=== PATIENT | male | born 1950 | race Caucasian/White ===

== ENCOUNTER → 2018-08-28 14:52 | Outpatient (CLI) | payer MEDICARE, OTHER ==
[~2018-08-28 14:52] MED LIST: AMBIEN CR 6.26.25 MG PO; AMBIEN5 MG PO; COLACE100 MG PO; COUMADIN5 MG PO; COUMADIN7.5 MG PO; HYSINGLA ER20 MG PO; LIPITOR20 MG PO; LOW DOSE ASPIRI81 M1 PO; OXYCONTIN10 MG PO; PRINIVIL20 MG PO; PROTONIX VL + NS SYR IV; TENORMIN25 MG PO; XANAX0.5 MG PO; ZOFRAN INJ IV
[2018-08-30 18:13] VITALS: BMI 36.2
== END | disposition home or self-care (01) ==
LOC: D.CT 14:52
DX: I70.8 Atherosclerosis of other arteries (principal)

== ENCOUNTER 2018-08-29 17:04 | Inpatient (IN) | payer MEDICARE, OTHER ==
[~2018-08-29] VITALS: Ht 175.3 cm; Wt 111.1 kg
--- NOTE | ~2018-08-29 | HEMODYNAMI ---
PATIENT:CODY POE MEDICAL RECORD: [id number] : 46 LOCATION:[facility] D.2303 ADMISSION DATE: 08/29/18 Generatedon:09/04/201815:24 Patient name: CODY POE Patient #: [id number] SSN: D OB: 1950 Date of study: 09/04/2018 Page: Of Hemodynamic Procedure Report Patient Data Patient Demographics Procedure consent was obtained First Name: CODY Gender: Male Last Name: DEEPIKA : 1950 [facility] Initial: RAUDEL Age: 68 year(s) Patient #: [id number] Race: Unknown Additional ID: [id number] Contact details Address: [address] [place] [address] State: [place] City: [facility] Zip code: [address] Past Medical History Allergies: No known allergies Admission Admission Data Admission Date: 08/29/2018 Admission Time: 17:04 Room #: D.2303 Height (in.): 69 BSA: 2.25 (m2) Height (cm.): 175.26 BMI: 36.03 (kg/m2) Weight (lbs.): 244 Weight (kg.): 110.68 Procedure Procedure Types Cath Procedure Peripheral Cath Diagnostic Procedure Abd/Extremity Follow Up Arteriogram Procedure Description Procedure Date Procedure Date: 09/04/2018 Procedure Start Time: 13:36 Procedure Staff Name Function Emelia Hendricks MD Performing Physician Heike Arnold RT Monitor Xavier Winters RT Scrub Ashtyn Morgan RN Nurse Procedure Data Cath Procedure Fluoroscopy Diagnostic fluoroscopy Total fluoroscopy Time: 7.8 time: 7.8 min min Diagnostic fluoroscopy Total fluoroscopy dose: 463 dose: 463 mGy mGy Contrast Material Contrast Material Type Amount (ml) Isovue 300 115 Entry Location Entry Primary Successful Side Size Upsize Upsize Entry Closure Succes sful Closure Location (Fr) 1 (Fr) 2 (Fr) Remarks Device Remarks Femoral Exoseal artery Procedure Medications Medication Administration Route Dosage Heparin Flush Bag added to field 2 bags (1000units/500ml NS) Lidocaine 1% added to field 20 Oxygen etCO2 Nasal cannula 3 l/min Versed I.V. 2 mg Heparin Bolus I.V. 1000 units Heparin Drip I.V. drip 800 units/hr (15777nbqzy/250 D5W) Versed I.V. 1 mg Versed I.V. 1 mg Benadryl I.V. 25 mg Hemodynamics Rest BSA: 2.25 (m2) O2 Consumption: Estimated: 263.6 (ml/min) O2 Consumption indexed: Estimated:117.16 (ml/min/m) Heart Rate: 74 (bpm) Snapshots Pre Cath Intra NCS Post Cath Vital Signs Time Heart Resp SPO2 etCO2 NIBP Rhythm Pain Sedation Rate (ipm) (%) (mmHg) (mmHg) Status Level (bpm) 13:27:57 74 19 98 41.1 101/60(81) NSR 0 (11) 10(A) , No pain 13:32:07 71 30 98 41.1 97/62(78) NSR 0 (11) 10(A) , No pain 13:36:14 79 13 40.4 100/60(74) NSR 0 (11) 9(A) , No pain 13:40:22 76 13 98 27.6 104/62(80) NSR 0 (11) 9(A) , No pain 13:44:32 77 11 98 42.6 103/61(84) NSR 0 (11) 9(A) , No pain 13:48:40 78 12 40.4 107/68(88) NSR 0 (11) 9(A) , No pain 13:52:52 77 32 41.9 99/62(76) NSR 0 (11) 9(A) , No pain 13:56:58 79 26 97 40.4 94/61(74) NSR 0 (11) 9(A) , No pain 14:01:04 78 13 97 41.9 89/61(76) NSR 0 (11) 9(A) , No pain 14:05:09 77 13 97 44.1 91/56(76) NSR 0 (11) 9(A) , No pain 14:09:15 77 11 96 49.3 93/57(74) NSR 0 (11) 9(A) , No pain 14:13:29 78 50 96 41.1 96/57(70) NSR 0 (11) 9(A) , No pain 14:17:35 80 12 95 40.3 104/64(79) NSR 0 (11) 9(A) , No pain 14:21:45 85 13 95 42.6 99/62(86) NSR 0 (11) 9(A) , No pain 14:25:50 83 13 95 41.1 104/65(86) NSR 0 (11) 9(A) , No pain 14:30:00 82 16 95 41.8 101/62(82) NSR 0 (11) 9(A) , No pain 14:34:10 80 41 96 41.1 102/63(86) NSR 0 (11) 9(A) , No pain 14:38:20 85 14 95 38.8 101/62(76) NSR 0 (11) 9(A) , No pain 14:42:28 81 13 96 41.1 101/59(83) NSR 0 (11) 9(A) , No pain 14:46:38 82 23 96 42.6 90/60(75) NSR 0 (11) 9(A) , No pain 14:50:42 88 21 95 40.3 106/62(83) NSR 0 (11) 9(A) , No pain 14:54:52 84 12 95 32.1 96/65(80) NSR 0 (11) 9(A) , No pain 14:58:57 84 18 91 39.6 95/61(79) NSR 0 (11) 9(A) , No pain 15:03:03 87 11 90 38.1 94/63(79) NSR 0 (11) 9(A) , No pain 15:07:09 89 14 92 34.3 96/63(74) NSR 0 (11) 9(A) , No pain 15:11:15 83 17 92 38.8 90/61(75) NSR 0 (11) 9(A) , No pain 15:15:19 81 17 93 35.1 88/64(72) NSR 0 (11) 9(A) , No pain 15:19:22 85 13 92 40.4 97/59(75) NSR 0 (11) 9(A) , No pain 15:23:32 75 42 92 38.1 101/55(83) NSR 0 (11) 9(A) , No pain Medications Time Medication Route Dose Verified Delivered Reason Notes Effectiveness by by 13:25:07 Heparin Flush added 2 bags M J Long M J Long used for Bag to MD WHITFIELD procedure (1000units/500ml field NS) 13:25:23 Lidocaine 1% added 20ml M J Long M J Long for local to vial MD WHITFIELD anesthetic field 13:32:41 Oxygen etCO2 3 l/min M J Long Ashtyn used for Nasal MD Eddie CARLOS procedure cannula 13:50:37 Versed I.V. 2 mg M J Long Ashtyn for MD Eddie CARLOS sedation 14:31:49 Heparin Bolus I.V. 1000 M J Long Ashtyn Per units MD Eddie CARLOS physician 14:32:08 Heparin Drip I.V. 800 M J Long Ashtyn Per (09839bnfas/250 drip units/hr MD Eddie CARLOS physician D5W) 14:33:57 Versed I.V. 1 mg M J Long Ashtyn for MD Eddie CARLOS sedation 14:45:39 Versed I.V. 1 mg M J Long Ashtyn for MD Eddie CARLOS sedation 14:59:56 Benadryl I.V. 25 mg M J Long Ashtyn Per MD Eddie CARLOS physician Procedure Log Time Note 12:42:05 Patient Height : 69 inches 12:42:05 Patient Weight : 244 lbs 13:08:51 Time tracking: Regular hours (M-F 7:00 - 5:00) 13:09:34 Plan of Care:Hemodynamics will remain stable., Cardiac rhythm will remain stable., Comfort level will be maintained., Respiratory function will remain adequate., Patient/ family verbilizes understanding of procedure., Procedure tolerated without complication., Recovers from procedure without complications.. 13:09:43 Patient received from ICU to IR Alert and oriented. Tansferred to table in Supine position. 13:09:44 Correct patient and procedure confirmed by team. 13:09:47 Signed procedure consent form obtained from patient. 13:09:52 H&P Date Dictated: 09/04/2018 Within 30 days and on chart.. 13:09:54 Pre-procedure instructions explained to patient. 13:09:55 Pre-op teaching completed and patient verbalized understanding. 13:09:57 Family in waiting room. 13:10:01 Patient NPO since Midnight. 13:10:11 Is the patient allergic to Iodine/contrast media? No. 13:10:14 Is patient on blood thinner?Yes 13:10:17 Patient diabetic? No. 13:10:19 - 13:10:20 ----Pre-sedation anethsthesia assessment.---- 13:10:25 Previous problem with sedation/anesthesia? No ? 13:10:28 Snore? Yes 13:10:31 Sleep apnea? Yes 13:10:33 Deviated septum? No 13:10:34 Opens mouth fully? Yes 13:10:36 Sticks out tongue? Yes 13:10:39 Airway obstruction? No ? 13:10:43 Dentures? No ? 13:10:50 Pre procedure: right dorsailis pedis pulse Doppler 13:10:55 Pre procedure: left dorsailis pedis pulse Doppler 13:11:00 Pre procedure: right posterior tibial pulse Doppler 13:11:05 Pre procedure: left posterior tibial pulse Doppler 13:11:35 IV patent on arrival in right forearm with D5/.45%NaCl at O. 13:11:47 Right groin area was prepped with betadine and draped in sterile fashio n 13:11:51 - 13:11:58 Use device set IR Diagnostic 13:12:01 Sterile Angiographic Pack opened to sterile field. 13:12:02 Bag Decanter () opened to sterile field. 13:12:05 Tegaderm 4 x 4 (1626W) opened to sterile field. 13:12:26 - 13:25:07 Heparin Flush Bag (1000units/500ml NS) 2 bags added to field was administered by Emelia Hendricks MD; used for procedure; 13:25:23 Lidocaine 1% 20ml vial added to field was administered by Emelia Hendricks MD; for local anesthetic; 13:26:42 - 13::47 ECG and BP/O2 sat monitors applied to patient. 13::48 Vital chart was started 13::50 Baseline sample Acquired. 13::55 Full Disclosure recording started 13::57 - 13:32:41 Oxygen 3 l/min etCO2 Nasal cannula was administered by Ashtyn Morgan RN ; used for procedure; 13:35:44 Physician arrived 13:35:45 --------ALL STOP TIME OUT------ 13:35:47 Final Timeout: patient, procedure, and site verified with staff and physician. All members of the team are in agreement. 13:36:17 Procedure started. 13:36:22 Local anesthetic to right femoral artery with Lidocaine 1% by Emelia Hendricks MD.INITIAL ACCESS ONLY 13:50:37 Versed 2 mg I.V. was administered by Ashtyn Morgan RN; for sedation; 14:27:17 SHEATH 5FR Slender (51-0473) opened to sterile field. 14:31:32 GLIDE WIRE ANGLE 180cm (KK1193) opened to sterile field. 14:31:33 CXI Catheter 90cm (B02111) opened to sterile field. 14:31:49 Heparin Bolus 1000 units I.V. was administered by Ashtyn Morgan RN; Per physician; 14:31:52 TORQUE DEVICE PLASTIC .038 ( TD01) opened to sterile field. 14:32:08 Heparin Drip (74670mfser/250 D5W) 800 units/hr I.V. drip was administered by Ashtyn Morgan RN; Per physician; 14:33:57 Versed 1 mg I.V. was administered by Ashtyn Morgan RN; for sedation; 14:45:39 Versed 1 mg I.V. was administered by Ashtyn Morgan RN; for sedation; 14:59:56 Benadryl 25 mg I.V. was administered by Ashtyn Morgan RN; Per physician ; 15:01:18 SHEATH 6FR [place] (IYO429) opened to sterile field. 15:01:30 DOC .035 wire (Y19132) opened to sterile field. 15:03:32 EXOSEAL 6Fr (EX600) opened to sterile field. 15:04:34 A sheath was inserted into the Femoral artery 15:04:34 Sheath removed intact; hemostasis achieved with Exoseal to the Femoral artery. 15:09:25 Procedure ended.(Physican Out) 15:09:39 Fluoroscopy time 07.80 minutes. 15:09:45 Fluoroscopy dose: 463 mGy 15:09:45 Flurop Dose total: 463 15:09:52 Contrast amount:Isovue 300 115ml. 15:09:54 Procedure and supply charges have been captured, reviewed, submitted an d are correct. 15:11:50 Report given to ICU. 15:24:32 Vital chart was stopped Device Usage Item Name Manufacture Quantity Catalog Hospital Part Current Minimal Lot# / Number Charge Number Stock Stock Serial# Code Sterile Cardinal 1 [id number] 5 Angiographic Health Pack Bag Decanter Microtek 1 [id number] 10230 197426 5 () [employer] Tegaderm 4 x 3M 1 1626W [id number] 399239 852699 5 4 (1626W) SHEATH 6FR Terumo 1 [id number] 887463 519504 631303 5 Slender (801060) GLIDE WIRE Terumo 1 [id number] 909603 931994 396384 5 ANGLE 180cm (LF4573) CXI Catheter [employer] 1 V97262 960214 745560 194736 5 [id number] 90cm (X44336) TORQUE [place] 1 TD01 259075 114940 088758 5 DEVICE Scientific PLASTIC .038 ( TD01) SHEATH 6FR Terumo 1 SID004 486641 273398 484163 40 [place] (PSE544) DOC .035 [employer] 1 B85123 972987 781176 5 wire (N32091) EXOSEAL 6Fr Cardinal 1 EX600 763211 130580 731165 10 [id number] (EX600) Health Signature Audit [place] Stage Time Signature Unsigned Intra-Procedure 09/04/2018 Heike Arnold 3:24:28 PM RT(R) Signatures Monitor : Heike Arnold RT Signature : Date : Time : [facility] [address] [facility] [place] [address]
--- NOTE | ~2018-08-29 | HEMODYNAMI ---
PATIENT:CODY POE MEDICAL RECORD: [id number] : 46 LOCATION:D.MS [facility]4 ADMISSION DATE: 08/29/18 Generatedon:09/03/201814:18 Patient name: CODY POE Patient #: [id number] SSN: D OB: 1950 Date of study: 09/03/2018 Page: Of Hemodynamic Procedure Report Patient Data Patient Demographics Procedure consent was obtained First Name: CODY Gender: Male Last Name: DEEPIKA : 1950 [facility] Initial: RAUDEL Age: 68 year(s) Patient #: [id number] Race: Unknown Additional ID: [id number] Contact details Address: [address] [place] [address] State: [place] City: [facility] Zip code: [address] Past Medical History Allergies: No known allergies Admission Admission Data Admission Date: 08/29/2018 Admission Time: 17:04 Room #: D.2204 Height (in.): 69 BSA: 2.25 (m2) Height (cm.): 175.26 BMI: 36.03 (kg/m2) Weight (lbs.): 244 Weight (kg.): 110.68 Procedure Procedure Types Cath Procedure Peripheral Cath Diagnostic Procedure Language Translator Peripheral Procedures Abd/Extremity Extremities Bilat Lower Extremity Procedure Description Procedure Date Procedure Date: 09/03/2018 Procedure Start Time: 12:43 Procedure Staff Name Function Jewel Mcdermott MD Performing Physician Heike Arnold RT Torch Straightener And Heater Ashtyn Morgan RN Nurse Xavier Winters RT Scrub Procedure Data Cath Procedure Fluoroscopy Diagnostic fluoroscopy Total fluoroscopy Time: time: 27.6 min 27.6 min Diagnostic fluoroscopy Total fluoroscopy dose: 797 dose: 797 mGy mGy Contrast Material Contrast Material Type Amount (ml) Isovue 300 115 Diagnostic catheters Device Type Used For End Catheter Placement DIAGNOSTIC IMT 5Fr Catheter ([id number]) Procedure Medications Medication Administration Route Dosage Heparin Flush Bag added to field 3 bags (1000units/500ml NS) Lidocaine 1% added to field 20 Oxygen etCO2 Nasal cannula 3 l/min Versed I.V. 1 mg Fentanyl I.V. 50 mcg Heparin Bolus I.V. 3000 units Versed I.V. 1 mg Fentanyl I.V. 50 mcg Fentanyl I.V. 50 mcg Versed I.V. 1 mg Benadryl I.V. 25 mg Versed I.V. 1 mg Fentanyl I.V. 50 mcg Heparin Bolus I.V. 4000 units unlisted medication 1 mg/hr Heparin Drip 500 units/hr (63346rcamm/250 D5W) Hemodynamics Rest BSA: 2.25 (m2) O2 Consumption: Estimated: 259.93 (ml/min) O2 Consumption indexed : Estimated:115.52 (ml/min/m) Heart Rate: 69 (bpm) Snapshots Pre Cath Intra NCS Post Cath Vital Signs Time Heart Resp SPO2 etCO2 NIBP (mmHg) Rhythm Pain Status Sedation Rate (ipm) (%) (mmHg) Level (bpm) 12:28:02 66 9 97 35.8 132/84(110) NSR 0 (11) , No 10(A) pain 12:32:22 65 13 98 33.6 129/81(97) NSR 0 (11) , No 10(A) pain 12:36:38 66 11 97 36.5 133/82(109) NSR 2 (11) , 10(A) Uncomfortable 12:40:56 67 96 34.3 126/77(97) NSR 0 (11) , No 9(A) pain 12:45:12 68 12 97 37.3 131/87(112) NSR 0 (11) , No 9(A) pain 12:49:30 68 14 98 31.3 125/80(106) NSR 0 (11) , No 9(A) pain 12:53:48 65 11 99 35 120/78(96) NSR 0 (11) , No 9(A) pain 12:58:04 66 9 99 41.1 128/80(100) NSR 0 (11) , No 9(A) pain 13:02:22 62 10 97 39.6 119/78(90) NSR 0 (11) , No 9(A) pain 13:06:37 61 10 98 40.3 121/73(89) NSR 0 (11) , No 8(A) pain 13:10:50 59 10 98 38 118/74(93) NSR 0 (11) , No 8(A) pain 13:15:07 66 20 98 37.3 117/75(88) NSR 0 (11) , No 8(A) pain 13:19:22 63 13 98 29.1 110/76(89) NSR 0 (11) , No 8(A) pain 13:23:34 62 19 98 39.5 116/72(88) NSR 0 (11) , No 8(A) pain 13:27:53 61 31 98 37.3 119/69(86) NSR 0 (11) , No 8(A) pain 13:32:09 60 14 97 37.3 115/76(87) NSR 0 (11) , No 8(A) pain 13:36:23 60 9 97 36.5 118/74(89) NSR 0 (11) , No 8(A) pain 13:40:36 61 12 98 38 123/78(91) NSR 0 (11) , No 8(A) pain 13:44:51 63 11 98 36.5 110/74(82) NSR 0 (11) , No 8(A) pain 13:49:05 64 48 98 37.2 111/69(79) NSR 0 (11) , No 8(A) pain 13:53:18 60 13 98 39.5 113/74(92) NSR 0 (11) , No 8(A) pain 13:57:32 58 17 98 38 120/71(103) NSR 0 (11) , No 8(A) pain 14:01:49 64 12 97 17.9 119/77(89) NSR 0 (11) , No 8(A) pain 14:06:05 59 9 95 35.8 117/77(89) NSR 0 (11) , No 8(A) pain 14:10:18 56 20 98 38.7 122/79(90) NSR 0 (11) , No 8(A) pain 14:14:33 60 15 98 33.6 116/78(89) NSR 0 (11) , No 8(A) pain Medications Time Medication Route Dose Verified Delivered Reason Notes Effectiveness by by 12:36:43 Heparin Flush added 3 bags Jewel Holloway used for Bag to Sharron Mcdermott procedure (1000units/500ml field MD [place] NS) 12:36:55 Lidocaine 1% added 20ml Jewel Holloway for local to vial Sharron Mcdermott anesthetic field MD [place] 12:37:14 Oxygen etCO2 3 l/min Jewel Chamorro used for Nasal Sharron Brooksr systems design engineer cannula MD 12:45:15 Versed I.V. 1 mg Jewel Ashtyn for Sharron Eddie RN sedation 12:45:27 Fentanyl I.V. 50 mcg Jewel Sidhuody for Sharron Eddie RN sedation 12:47:44 Heparin Bolus I.V. 3000 Jewel Ashtyn Per units Sharron Brooksr RN physician 12:47:54 Versed I.V. 1 mg Jewel Ashtyn for Sharron Eddie RN sedation 12:48:00 Fentanyl I.V. 50 mcg Jewel Ashtyn for Sharron Eddie RN sedation 12:56:52 Fentanyl I.V. 50 mcg Jewel Sidhuody for Sharron Eddie RN sedation 12:56:59 Versed I.V. 1 mg Jewel Sidhuody for Sharron Eddie RN sedation 13:03:44 Benadryl I.V. 25 mg Jewel Sidhuody for Sharron Eddie RN sedation 13:28:55 Versed I.V. 1 mg Jewel Ashtyn for Sharron Eddie RN sedation 13:29:03 Fentanyl I.V. 50 mcg Jewel Ashtyn for Sharron Eddie RN sedation 13:38:03 Heparin Bolus I.V. 4000 Jewel Ashtyn Per units Sharron Brooksr RN physician 14:09:55 ALTEPLASE IA 1 mg/hr Jewel Sidhuody Per Sharron Brooksr RN physician 14:10:15 Heparin Drip IA 500 Jewel Ashtyn Per (08613yobes/250 units/hr Sharron Brooksr RN physician D5W) Procedure Log Time Note 11:29:16 Patient Height : 69 inches 11:29:32 Patient Weight : 244 lbs 11:36:23 Use device set IR Diagnostic 12:11:59 Time tracking: Regular hours (M-F 7:00 - 5:00) 12:13:21 SHEATH 6FR Destination (RSR01) opened to sterile field. 12:13:23 TUBING Contrast Injection High Pressure (NTF894Z) opened to sterile field. 12:13:23 BENTSON 145cm wire (P74982) opened to sterile field. 12:13:25 Micropuncture VSI 4FR kit opened to sterile field. 12:13:26 SHEATH 5FR [place] (KLY150) opened to sterile field. 12:13:27 LOBATO 260 wire (K38616) opened to sterile field. 12:13:29 Tegaderm 4 x 4 (1626W) opened to sterile field. 12:13:30 Sterile Angiographic Pack opened to sterile field. 12:13:31 Bag Decanter (2002S) opened to sterile field. 12:13:32 ACIST Manifold (18925) opened to sterile field. 12:13:33 ACIST Hand Control (79415) opened to sterile field. 12:13:33 ACIST Syringe (44605) opened to sterile field. 12:13:39 - 12:13:46 Plan of Care:Hemodynamics will remain stable., Cardiac rhythm will remain stable., Comfort level will be maintained., Respiratory function will remain adequate., Patient/ family verbilizes understanding of procedure., Procedure tolerated without complication., Recovers from procedure without complications.. 12:13:55 Patient received from Med/Surg to IR Alert and oriented. Tansferred to table in Supine position. 12:13:57 Correct patient and procedure confirmed by team. 12:14:00 Signed procedure consent form obtained from patient. 12:14:08 H&P Date Dictated: 09/03/2018 Within 30 days and on chart.. 12:14:12 Pre-procedure instructions explained to patient. 12:14:13 Pre-op teaching completed and patient verbalized understanding. 12:14:17 Family in waiting room. 12:14:20 Patient NPO since Midnight. 12:14:31 Patient allergic to No known allergies 12:14:38 Is the patient allergic to Iodine/contrast media? No. 12:16:42 Is patient on blood thinner?Yes 12:16:48 ACC The patient was administered the following blood thiners within the last 24 hours: ACCHeparin 12:16:53 Patient diabetic? No. 12:16:56 - 12:16:57 ----Pre-sedation anethsthesia assessment.---- 12:17:00 Previous problem with sedation/anesthesia? No ? 12:17:03 Snore? Yes 12:17:05 Sleep apnea? Yes 12:17:08 Deviated septum? No 12:17:12 Opens mouth fully? Yes 12:17:14 Sticks out tongue? Yes 12:17:18 Airway obstruction? No ? 12:17:22 Dentures? No ? 12:17:25 - 12::46 Pre procedure: left posterior tibial pulse 0-Absent 12:17:51 Pre procedure: right posterior tibial pulse Doppler 12:17:55 Pre procedure: left dorsailis pedis pulse Doppler 12:18:01 Pre procedure: right dorsailis pedis pulse Doppler 12:18:14 IV patent on arrival in right forearm with D5/.45%NaCl at O. 12:18:20 Right groin area was prepped with chlora-prep and draped in sterile fashion 12:18:22 - 12::46 ECG and BP/O2 sat monitors applied to patient. ::46 Vital chart was started 12::47 Baseline sample Acquired. 12:28:58 A DIAGNOSTIC IMT 5Fr Catheter ([id number]) was advanced over the wire an d used for . 12::02 Full Disclosure recording started 12:29:05 - 12:36:43 Heparin Flush Bag (1000units/500ml NS) 3 bags added to field was administered by Jewel Mcdermott MD; used for procedure; 12:36:55 Lidocaine 1% 20ml vial added to field was administered by Jewel peters MD; for local anesthetic; 12:37:14 Oxygen 3 l/min etCO2 Nasal cannula was administered by Ashtyn Morgan RN ; used for procedure; 12:39:02 Physician arrived 12:39:03 --------ALL STOP TIME OUT------ 12:39:04 Final Timeout: patient, procedure, and site verified with staff and physician. All members of the team are in agreement. 12:43:02 Procedure started. 12:43:06 Local anesthetic to right femoral artery with Lidocaine 1% by Jewel Mcdermott MD.INITIAL ACCESS ONLY 12:43:08 Arterial access obtained using ultrasound guidance. 12:43:27 BANNER .035 260 glide wire (K33822) opened to sterile field. 12:45:15 Versed 1 mg I.V. was administered by Ashtyn Morgan RN; for sedation; 12:45:27 Fentanyl 50 mcg I.V. was administered by Ashtyn Morgan RN; for sedation ; 12:47:44 Heparin Bolus 3000 units I.V. was administered by Ashtyn Morgan RN; Per physician; 12:47:54 Versed 1 mg I.V. was administered by Ashtyn Morgan RN; for sedation; 12:48:00 Fentanyl 50 mcg I.V. was administered by Ashtyn Morgan RN; for sedation ; 12:56:52 Fentanyl 50 mcg I.V. was administered by Ashtyn Morgan RN; for sedation ; 12:56:59 Versed 1 mg I.V. was administered by Ashtyn Morgan RN; for sedation; 12:58:43 CXI SUPPORT .035 135 CM STR catheter (B26394) opened to sterile field. 13:03:44 Benadryl 25 mg I.V. was administered by Ashtyn Morgan RN; for sedation; 13:07:23 Viance Crossing Catheter Flex (YDDAU680) opened to sterile field. 13:07:23 DIAMONDBACK VIPER .014 335 CM wire (DOKZNXT50) opened to sterile field. 13:20:22 TREASURE 12 300cm wire ([id number]) opened to sterile field. 13:28:55 Versed 1 mg I.V. was administered by Ashtyn Morgan RN; for sedation; 13:29:03 Fentanyl 50 mcg I.V. was administered by Ashtyn Morgan RN; for sedation ; 13:37:43 CHOICE PT Extra Support 182cm wire (2586975C0) opened to sterile field. 13:37:50 CXI SUPPORT .018 150CM STR catheter (F72972) opened to sterile field. 13:38:03 Heparin Bolus 4000 units I.V. was administered by Ashtyn Morgan RN; Per physician; 13:51:50 Inflate balloon Inflation number: 1 A Evercross 5 x 100 x 135 Balloon ([id number]) was prepped and advanced across the Undefined1, then inflated. 13:57:32 INFLATOR BasixTOUCH (RA8482) opened to sterile field. 14:03:24 [facility]cm [facility] placed in left tib/per for infusion o f TPA. 14:03:32 Procedure ended.(Physican Out) 14:03:49 Fluoroscopy time 27.60 minutes. 14:03:55 Fluoroscopy dose: 797 mGy 14:03:55 Flurop Dose total: 797 14:04:03 Contrast amount:Isovue 300 115ml. 14:08:00 Procedure and supply charges have been captured, reviewed, submitted an d are correct. 14:08:05 Post Procedure Pulses reassessed and unchanged 14:08:10 Report given to ICU. 14:09:55 ALTEPLASE 1 mg/hr IA was administered by Ashtyn Morgan RN; Per physician; 14:10:15 Heparin Drip (65002kgdbh/250 D5W) 500 units/hr IA was administered by Ashtyn Morgan RN; Per physician; 14:17:41 Patient transfered to ICU with Bed. 14:18:04 Vital chart was stopped Intervention Summary Intervention Notes Time ActionType Lesion and Equipment Used Action# Pressure Duration Attributes 13:51:50 Inflate Undefined1 Evercross 5 x 1 0 00:00 balloon 100 x 135 Balloon ([id number]) Device Usage Item Name Manufacture Quantity Catalog Number Hospital Part Current Minimal Lot# / Charge Number Stock Stock Serial# Code SHEATH 6FR Terumo 1 RSR01 008321 90028 328655 5 Destination (RSR01) TUBING Contrast [facility] 1 [id number] 574968 104375 352369 5 Injection High Pressure ([id number]) BENTSON 145cm [facility] 1 O36541 064086 651576 5 wire (T69491) Micropuncture VSI VASCULAR 1 7266V 275251 514356 5 VSI 4FR kit SOLUTIONS SHEATH 5FR Terumo 1 YCK128 252912 008200 823073 5 [place] (FSA257) LOBATO 260 wire [facility] 1 Z94054 542724 41738 898360 5 [id number] (L83828) Tegaderm 4 x 4 3M 1 1626W 915839 132385 385935 5 (1626W) Sterile Cardinal 1 [id number] 042185 177544 5 Angiographic Health Pack Bag Decanter Microtek 1 2001S 943206 20245 035118 5 (2001S) Medical Inc. ACIST Manifold Acist Medical 1 77157 721455 071627 227232 5 (24676) Systems Inc ACIST Hand Acist Medical 1 39617 855461 354350 283793 5 Control (18974) Systems Inc ACIST Syringe [employer]ist [employer] 1 28745 722394 602537 276559 20 (50736) Systems Inc DIAGNOSTIC IMT [place] 1 [id number] 027217 794874 64292 5 04781970 5Fr Catheter Scientific ([id number]) ROADRUNNER .035 [facility] 1 Q75481 045461 038617 054993 5 6196490 260 glide wire (W35893) CXI SUPPORT [facility] 1 M54642 089635 766454 807302 5 1081152 .035 135 CM STR catheter (X81218) Viance Crossing Medtronic 1 VNC-FX-150 964789 238325 630967 5 Catheter Flex (ZAHLH944) DIAMONDBACK Cardiovascular 1 VPR-GW-FT14 370990 397112 5 VIPER .014 335 systems CM wire (MKLEDXR78) TREASURE 12 Cardiovascular 1 PMQA09N234 399437 188713 975246 5 300cm wire systems ([id number]) CHOICE PT Extra [place] 1 [id number] 783062 641799 214883 5 Support 182cm Scientific wire ([id number]) CXI SUPPORT [employer] [facility] 1 Y32852 858488 558603 126623 5 4587469 .018 150CM STR catheter (I62584) Evercross 5 x Medtronic 1 [id number] 016633 400023 180930 5 [id number] 100 x 135 Balloon ([id number]) INFLATOR [facility] 1 AP8220 595743 548477 969846 5 BasixTOUCH (UN5141) Signature Audit [place] Stage Time Signature Unsigned Intra-Procedure 09/03/2018 Heike Arnold 2:18:00 PM RT(R) [facility] [address] [place] [address]
[2018-08-29 18:40] LABS: BASOPHILS 0.5 % (0-2); EOSINOPHILS 0.4 % (0-7); HEMATOCRIT 46.6 % (42.0-54.0); HEMOGLOBIN 16.8 g/dL (13.5-17.5); IMMATURE GRANULOCYTES 0.4 % (0-5); LYMPHOCYTES 25.3 % (15-50); MCHC 36.1 g/dL (31.0-37.0); MCV 88.8 fL (80.0-100.0); MEAN PLATELET VOLUME 9.5 fL (7.4-10.4); MONOCYTES 8.6 % (2-11); NEUTROPHILS 64.8 % (40-80); PLATELET COUNT 149 10x3/uL (130-400); RBC 5.25 10x6/uL (4.20-6.10); RDW 11.8 % (11.5-14.5); WBC 9.7 10x3/uL (4.8-10.8)
[2018-08-29 18:55] LABS: INR 1.98 (0.85-1.17); PROTIME 21.8 SECONDS (11.6-15.0)
[2018-08-29 19:04] LABS: ALBUMIN 3.7 g/dL (3.4-5.0); ANION GAP 14.3 mmol/L (8-16); BILIRUBIN - TOTAL 0.5 mg/dL (0.2-1.3); CALCIUM 8.5 mg/dL (8.5-10.1); CARBON DIOXIDE 26.9 mmol/L (21.0-32.0); CREATININE - SERUM 1.3 mg/dL (0.6-1.3); POTASSIUM - SERUM 4.2 mmol/L (3.5-5.1); PROTEIN - SERUM 6.5 g/dL (6.4-8.2)
[2018-08-29 21:44] VITALS: BP 121/78
[2018-08-29] MEDS ORDERED: XANAX0.5 MG PO (23:06)
[2018-08-29] MEDS ORDERED: LOW DOSE ASPIRI81 M1 PO (23:09)
[2018-08-29] MEDS ORDERED: HYSINGLA ER20 MG PO (23:11)
[2018-08-29] MEDS ORDERED: OXYCONTIN10 MG PO (23:14)
[2018-08-29] MEDS ORDERED: AMBIEN CR 6.26.25 MG PO (23:16)
[2018-08-29 23:22] VITALS: BP 121/78; BMI 36.2
[2018-08-30 01:37] VITALS: BP 120/70
[2018-08-30 04:47] LABS: BASOPHILS 0.4 % (0-2); EOSINOPHILS 2.1 % (0-7); HEMATOCRIT 42.9 % (42.0-54.0); HEMOGLOBIN 15.3 g/dL (13.5-17.5); IMMATURE GRANULOCYTES 0.3 % (0-5); LYMPHOCYTES 38.2 % (15-50); MCH 31.4 pg (26.0-34.0); MCHC 35.7 g/dL (31.0-37.0); MCV 88.1 fL (80.0-100.0); MEAN PLATELET VOLUME 9.4 fL (7.4-10.4); MONOCYTES 10.2 % (2-11); NEUTROPHILS 48.8 % (40-80); PLATELET COUNT 139 10x3/uL (130-400); RBC 4.87 10x6/uL (4.20-6.10); RDW 11.8 % (11.5-14.5); WBC 7.6 10x3/uL (4.8-10.8)
[2018-08-30 04:48] VITALS: BP 114/72
[2018-08-30 04:53] LABS: ANION GAP 9.5 mmol/L (8-16); CALCIUM 8.3 mg/dL (8.5-10.1); CARBON DIOXIDE 28.3 mmol/L (21.0-32.0); CREATININE - SERUM 1.4 mg/dL (0.6-1.3); POTASSIUM - SERUM 3.8 mmol/L (3.5-5.1)
--- NOTE | 2018-08-30 07:15 | NUR ---
MORNING ASSESSMENT COMPLETE. SEE ASSESSMENT FLOWSHEET FOR FURTHER DETAILS. PT LYING IN BED AAO X4 TO PERSON, PLACE, TIME AND SITUATION. R FA PIV- C/D/I; PATENT. DVT NOTED TO L LEG. STATES HIS FOOT STAYS JUDY COLD. DENIES FURTHER NEEDS AT THIS TIME. CL IN REACH.
[2018-08-30 08:30] VITALS: BP 121/83
[2018-08-30] MEDS ORDERED: PRINIVIL20 MG PO (10:26)
[2018-08-30] MEDS ORDERED: OXYCONTIN10 MG PO (10:27)
[2018-08-30] MEDS ORDERED: HYSINGLA ER20 MG PO (10:28)
[2018-08-30 11:57] VITALS: BMI 36.2
[2018-08-30 12:30] VITALS: BP 134/89
[2018-08-30 16:30] VITALS: BP 140/80
[2018-08-30 18:13] VITALS: Ht 175.3 cm; Wt 111.1 kg
[2018-08-30 21:48] VITALS: BP 116/81
[2018-08-31 00:55] VITALS: BP 123/78
[2018-08-31 03:09] LABS: BASOPHILS 0.3 % (0-2); EOSINOPHILS 1.3 % (0-7); HEMATOCRIT 43.1 % (42.0-54.0); HEMOGLOBIN 15.5 g/dL (13.5-17.5); IMMATURE GRANULOCYTES 0.5 % (0-5); LYMPHOCYTES 30.9 % (15-50); MCH 31.4 pg (26.0-34.0); MCV 87.4 fL (80.0-100.0); MEAN PLATELET VOLUME 9.5 fL (7.4-10.4); MONOCYTES 8.1 % (2-11); NEUTROPHILS 58.9 % (40-80); PLATELET COUNT 136 10x3/uL (130-400); RBC 4.93 10x6/uL (4.20-6.10); RDW 11.8 % (11.5-14.5); WBC 8.8 10x3/uL (4.8-10.8)
[2018-08-31 03:32] LABS: ANION GAP 12.8 mmol/L (8-16); CALCIUM 8.3 mg/dL (8.5-10.1); CARBON DIOXIDE 25.1 mmol/L (21.0-32.0); CREATININE - SERUM 1.2 mg/dL (0.6-1.3); POTASSIUM - SERUM 3.9 mmol/L (3.5-5.1)
[2018-08-31 05:35] VITALS: BP 130/78
--- NOTE | 2018-08-31 06:33 | NUR ---
PT IN BED RESTING QUIETLY WITH EYES CLOSED. NO VISUAL CUES OF DISTRESS NOTED. VITAL SIGNS STABLE AND AFEBRILE. DENIES ANY OTHER NEEDS AT THIS TIME. BED LOW, SIDE RAILS UP X2. CALL LIGHT IN REACH. WILL CONTINUE TO MONITOR.
[2018-08-31 07:37] LABS: INR 1.37 (0.85-1.17); PROTIME 16.3 SECONDS (11.6-15.0)
--- NOTE | 2018-08-31 08:45 | NUR ---
PT SITTING UP IN BED. ALERT AND ORIENTED. NO ACUTE DISTRESS NOTED. IV TO RIGHT FOREARM WITH HEPARIN INFUSING AT 12 ML/HR VIA PUMP. SITE WITHOUT REDNESS OR EDEMA. REPORTS PAIN 8/10 AT THIS TIME. PRESCRIBED PRN MEDICATION ADMINISTERED. DENIES FURTHER NEEDS AT THIS TIME. CL WITHIN REACH. ENCOURAGED TO CALL WITH NEEDS. CONTINUE POC
[2018-08-31 09:04] VITALS: BP 111/73
[2018-08-31 12:33] VITALS: BP 108/73
[2018-08-31 16:37] VITALS: BP 113/68
[2018-08-31 20:00] VITALS: BP 108/75
--- NOTE | 2018-08-31 20:20 | NUR ---
PT RESTING IN BED. ALERT AND ORIENTED. NO SIGNS OF DISTRESS. BREATHING EVEN AND UNLABORED. PT STATES NO PROBLEMS AT THIS TIME. IV SITE RT FA DRESSING CLEAN DRY AND INTACT. NO SIGNS OF INFECTION. BOWEL SOUNDS ACTIVE. NO LOWER LEG SWELLING PRESENT. WILL CONTINUE PLAN OF CARE. CALL LIGHT IN REACH.
[2018-09-01] VITALS: BP 97/65
--- NOTE | 2018-09-01 01:58 | NUR ---
ASSESSED, PT IS ASLEEP WITH EASY RESPIRATIONS AND NO DISTRESS NOTED. FAMILY AT THE BEDSIDE.
[2018-09-01 03:00] VITALS: BP 96/59
[2018-09-01 05:50] LABS: BASOPHILS 0.3 % (0-2); EOSINOPHILS 1.3 % (0-7); HEMATOCRIT 46.4 % (42.0-54.0); HEMOGLOBIN 16.7 g/dL (13.5-17.5); IMMATURE GRANULOCYTES 0.6 % (0-5); LYMPHOCYTES 30.1 % (15-50); MCV 88.9 fL (80.0-100.0); MEAN PLATELET VOLUME 9.4 fL (7.4-10.4); MONOCYTES 9.6 % (2-11); NEUTROPHILS 58.1 % (40-80); PLATELET COUNT 144 10x3/uL (130-400); RBC 5.22 10x6/uL (4.20-6.10); RDW 11.9 % (11.5-14.5)
[2018-09-01 05:59] LABS: ANION GAP 11.3 mmol/L (8-16); CALCIUM 8.4 mg/dL (8.5-10.1); CARBON DIOXIDE 29.4 mmol/L (21.0-32.0); CREATININE - SERUM 1.3 mg/dL (0.6-1.3); POTASSIUM - SERUM 3.7 mmol/L (3.5-5.1)
[2018-09-01 08:34] LABS: INR 1.17 (0.85-1.17); PROTIME 14.3 SECONDS (11.6-15.0)
--- NOTE | 2018-09-01 08:40 | NUR ---
PT RESTING QUIETLY IN BED WATCHING TV. NO ACUTE DISTRESS NOTED. BRUISING NOTED TO CHEST AREA. IV ACCESSED TO RIGHT CHEST IMPLANTED PORT WITH PROCALAMINE INFUSING VIA PUMP @ 125 ML/HR. DRESSING INTACT TO UPPER ABDOMEN WITH LIAM DRAIN. F/C PATENT TO GRAVITY. DENIES PAIN AT THIS TIME. CL WITHIN REACH. ENCOURAGED TO CALL WITH NEEDS. CONTINUE TO MONITOR/POC
[2018-09-01 08:50] LABS: APTT 53.8 SECONDS (22.8-39.4)
[2018-09-01 11:03] VITALS: BP 100/62
[2018-09-01 14:55] VITALS: BP 120/69
[2018-09-01 18:31] VITALS: BP 121/58
--- NOTE | 2018-09-01 19:00 | NUR ---
PT ALERT AND ORIENTED WHEN ENTERING THE ROOM. AT BEDSIDE. LEFT FOREARM IV INFUSING HEPARIN DRIP. CURRENTLY AT 14 ML-HR. LOWER LEFT LEG PRESENTS WARM AND DRY. LIMITED RANGE OF MOTION. CAP REFILL LESS THAN 3. NO OTHER COMPLAINTS AT THIS TIME. REQUESTS PAIN MEDICINES WITH HS MEDICATIONS. CALL LIGHT IN REACH.
[2018-09-01 20:00] VITALS: BP 146/90
--- NOTE | 2018-09-01 21:00 | NUR ---
PT SITTING UP IN BED, NO SIGNS OF DISTRESS. ALERT AND ORIENTED. AT BEDSIDE. PT HAD JUST TAKEN SHOWER W/ WIFES ASSIST. IV RIGHT FA INFUSING HEPARIN DRIP @ 14ML/HR. NO NEEDS OR COMPLAINTS AT THIS TIME. CL IN REACH
--- NOTE | 2018-09-01 22:42 | NUR ---
CALL TO LAB TO CHECK ON 2229 APTT. GÓMEZ FROM LAB STATED THAT SOMEONE WOULD BE UP SHORTLY TO DRAW.
[2018-09-02] VITALS: BP 138/78
[2018-09-02 03:00] VITALS: BP 130/56
[2018-09-02 05:31] LABS: HEMOGLOBIN 15.5 g/dL (13.5-17.5); MCH 31.7 pg (26.0-34.0); MCV 87.9 fL (80.0-100.0); MEAN PLATELET VOLUME 9.4 fL (7.4-10.4); PLATELET COUNT 151 10x3/uL (130-400); RBC 4.89 10x6/uL (4.20-6.10); RDW 11.8 % (11.5-14.5); WBC 9.5 10x3/uL (4.8-10.8)
[2018-09-02 05:37] LABS: EOSINOPHILS 1 % (0-7); LYMPHOCYTES 24 % (15-50); MONOCYTES 9 % (2-11); NEUTROPHILS 63 % (40-80); PLATELET ESTIMATE NORMAL
[2018-09-02 06:01] LABS: ANION GAP 12.8 mmol/L (8-16); CALCIUM 8.4 mg/dL (8.5-10.1); CARBON DIOXIDE 27.7 mmol/L (21.0-32.0); CREATININE - SERUM 1.3 mg/dL (0.6-1.3); POTASSIUM - SERUM 3.5 mmol/L (3.5-5.1)
[2018-09-02 09:10] VITALS: BP 94/59
--- NOTE | 2018-09-02 09:56 | MORECARE ---
CASE MANAGEMENT DISCHARGE SUMMARY PATIENT: CODY POE UNIT: [id number] ADM DATE: 08/29/18 AGE: 68 : 48 SEX: M ROOM/BED: D.2204 AUTHOR: ANA MARÍA WEAVER PHYSICIAN: REFERRING PHYSICIAN: SHAMEKA ORTIZ MD DATE OF SERVICE: 09/02/18 [facility]charge Plan [facility]ODY [facility] 1950 Planned Disposition: Home Anticipated Discharge Date: 09/07/18 Discharge Date: Expected LOS: 9 Initial Reviewer: [email or web address] Initial Review Date: 09/02/2018 Generated: 09/02/18 10:55 am Patient Name: CODY POE Page 29321 at 0956 All edits/amendments must be made on the electronic document DICTATION DATE: 09/02/18954 SYSTEM ADMINISTRATOR: PRECIOUS 09/02/1855 RPT#: [id number] DC DATE: STATUS: ADM IN [facility] [address] [place] [address] END OF REPORT
--- NOTE | 2018-09-02 10:02 | MORECARE ---
CASE MANAGEMENT DISCHARGE SUMMARY PATIENT: CODY POE UNIT: [id number] ADM DATE: 08/29/18 AGE: 68 : 48 SEX: M ROOM/BED: D.2204 AUTHOR: ANA MARÍA WEAVER PHYSICIAN: REFERRING PHYSICIAN: SHAMEKA ORTIZ MD DATE OF SERVICE: 09/02/18 Discharge Plan Patient Name: CODY POE [facility] [facility] 1950 Planned Disposition: Home Anticipated Discharge Date: 09/07/18 Discharge Date: Expected LOS: 9 Initial Reviewer: [email or web address] Initial Review Date: 09/02/2018 Generated: 09/02/18 11:02 am Last DP export: 09/02/18 8:55 am Patient Name: CODY POE Page 23266 at 1002 All edits/amendments must be made on the electronic document DICTATION DATE: 09/02/18 1002 CORRECTIONAL OFFICER CAPTAIN: DM 09/02/18 1002 RPT#: [id number] DC DATE: STATUS: ADM IN [facility] [address] [place] [address] END OF REPORT
--- NOTE | 2018-09-02 10:09 | MORECARE ---
CASE MANAGEMENT DISCHARGE SUMMARY PATIENT: CODY POE UNIT: [id number] ADM DATE: 08/29/18 AGE: 68 : 48 SEX: M ROOM/BED: D.2204 AUTHOR: ANA MARÍA WEAVER PHYSICIAN: REFERRING PHYSICIAN: SHAMEKA ORTIZ MD DATE OF SERVICE: 09/02/18 Discharge Plan Patient Name: CODY POE Facility: [facility]:[place] : 1950 Planned Disposition: Home Anticipated Discharge Date: 09/07/18 Discharge Date: Expected LOS: 9 Initial Reviewer: [email or web address] Initial Review Date: 09/02/2018 Generated: 09/02/18 11:08 am Comments DCP- Discharge Planning Updated by [email or web address]: Re Shepard on 09/02/18 9:[address] Patient Name: CODY POE Admission Status: Urgent Accout number: [id number] Admission Date: 08-29-2018 : 1950 Admission Diagnosis:OTHER DISORDER OF CIRCULATORY SYSTEM Attending: SHAMEKA ORTIZ Current LOS: 4 Anticipated DC Date: 09-07-2018 Planned Disposition: Home Primary Insurance: MEDICARE A & B Discharge Planning Comments: CM MET WITH PATIENT AND SPOUSE (PAT) REGARDING D/C NEEDS AND PLANS. PATIENT STATED HIS WILL DRIVE HIM HOME WHEN DISCHARGED. THERE ARE TWO STEPS TO ENTER HOME AND NO STAIRS INSIDE. PAITENT STATED HE IS INDEPENDENT WITH HIS CARE AND HAS A CPAP, O2, WALKER, CANE, BS COMMODE, SHOWER CHAIR, CRUTCHES, AND PORTABLE O2 AT HOME. PATIENTS PCP IS DR. ORTIZ AND USES [facility]. PATIENT DID NOT WANT HOME HEALTH AT THIS TIME. PATIENT AND HAD QUESTIONS REGARDING HIS SURGERY. CM SPOKE WITH PATIENTS NURSE (KENZIE) AND SHE AND I MET PATIENTS LEAVING IN [place] AND KENZIE SPOKE WITH HER AT THAT TIME AND SHE HAD HER QUESTIONS ANSWERED AND THEN KENZIE WENT INTO PATIENTS ROOM TO SPEAK WITH HIM. CM WILL CONTINUE TO FOLLOW PATIENT WITH D/C NEEDS AND PLANS. PCP [facility] PAT () [phone] Cleaning Handyman: Re Shepard DCPIA - Discharge Planning Initial Assessment Updated by [id number]: Re Shepard on 09/02/18 10:02 am * Is the patient Alert and Oriented? Yes * How many steps to enter\exit or inside your home? * PCP DR. ORTIZ * Pharmacy [facility] * Preadmission Environment Home with Family * ADLs Independent * Equipment Bedside Commode Cane CPAP Crutch Oxygen Shower Chair Walker * List name and contact numbers for known caregivers / representatives who currently or will assist patient after discharge: STEVAN MAYEN (SPOUSE) [phone] * Verbal permission to speak to the caregivers and representatives has been obtained from the patient. Yes * Community resources currently utilized None * Additional services required to return to the preadmission environment? Yes * Can the patient safely return to the preadmission environment? Yes * Has this patient been hospitalized within the prior 30 days at any hospital? No Last DP export: 09/02/18 9:02 am Patient Name: CODY POE Page 70843 at 1009 All edits/amendments must be made on the electronic document DICTATION DATE: 09/02/18 1008 HANDBAG FRAMES INSPECTOR: PRECIOUS 09/02/18 1008 RPT#: [id number] DC DATE: STATUS: ADM IN [facility] [address] [place] [address] END OF REPORT
[2018-09-02 13:02] VITALS: BP 112/56
[2018-09-02 17:06] LABS: APPEARANCE CLEAR (CLEAR); BILIRUBIN NEGATIVE (NEGATIVE); COLOR YELLOW (YELLOW); GLUCOSE NEGATIVE (NEGATIVE); KETONE NEGATIVE (NEGATIVE); NITRITE NEGATIVE (NEGATIVE); PROTEIN NEGATIVE (NEGATIVE); UROBILINOGEN NORMAL (NORMAL)
[2018-09-02 17:32] VITALS: BP 114/70
[2018-09-02 20:00] VITALS: BP 108/76
--- NOTE | 2018-09-02 20:00 | NUR ---
RESTING QUITELY IN BED RESP UNLABORED C/O PAIN TO LEG REQUESTING PAIN MED, CALL LIGHT IN REACH AT BEDSIDE, WILL MEDICATE FOR PAIN AND MONITOR
[2018-09-03] VITALS (21 sets, daily range): BP systolic 99–124; BP diastolic 63–77
[2018-09-03 05:13] LABS: BASOPHILS 0.2 % (0-2); EOSINOPHILS 1.2 % (0-7); HEMATOCRIT 43.4 % (42.0-54.0); HEMOGLOBIN 15.5 g/dL (13.5-17.5); IMMATURE GRANULOCYTES 0.3 % (0-5); LYMPHOCYTES 30.3 % (15-50); MCH 31.4 pg (26.0-34.0); MCHC 35.7 g/dL (31.0-37.0); MEAN PLATELET VOLUME 9.5 fL (7.4-10.4); MONOCYTES 9.4 % (2-11); NEUTROPHILS 58.6 % (40-80); PLATELET COUNT 144 10x3/uL (130-400); RBC 4.93 10x6/uL (4.20-6.10); RDW 11.9 % (11.5-14.5); WBC 8.6 10x3/uL (4.8-10.8)
[2018-09-03 05:53] LABS: ANION GAP 13.7 mmol/L (8-16); CALCIUM 8.2 mg/dL (8.5-10.1); CARBON DIOXIDE 24.7 mmol/L (21.0-32.0); CREATININE - SERUM 1.2 mg/dL (0.6-1.3); POTASSIUM - SERUM 3.4 mmol/L (3.5-5.1)
[2018-09-03 05:59] LABS: INR 1.12 (0.85-1.17); PROTIME 13.9 SECONDS (11.6-15.0)
[2018-09-03 06:00] LABS: APTT 95.5 SECONDS (22.8-39.4)
--- NOTE | 2018-09-03 07:15 | NUR ---
MORNING ASSESSMENT COMPLETE. SEE ASSESSMENT FLOWSHEET FOR FURTHER DEATILS. PT LYING IN BED AAO X4 TO PERSON, PLACE, TIME AND SITUATION. LLE DVT NOTED- ON HEPARIN @14. LLE PAIN- MOBIC BEING USED. AT BEDSIDE. DENIES NEEDS AT THIS TIME. CL IN REACH. SIDE RAILS UP X3 FOR PATIENT SAFETY
--- NOTE | 2018-09-03 14:25 | NUR ---
PATIENT ARRIVED VIA BED FROM [facility], TWO STAFF WITH HIM, RIGHT FEMORAL AREA WITHOUT NOTED BLEEDING OR HEMATOMA AT INSERTION SITE, LEFT FOOT IS COLD TO TOUCH, PEDAL AND DORSALIS PEDIS PULSED ARE STRONG WITH A DOPPLER. PATIENT IS AWAKE AND ALERT, AND SON VISITED.
--- NOTE | 2018-09-03 15:05 | NUR ---
RECD REPORT FROM FLOOR AFTER RECD PATIENT FROM IR WITH THEIR REPORT
[2018-09-03 15:56] LABS: BASOPHILS 0.3 % (0-2); EOSINOPHILS 0.8 % (0-7); HEMATOCRIT 44.4 % (42.0-54.0); IMMATURE GRANULOCYTES 0.3 % (0-5); LYMPHOCYTES 24.4 % (15-50); MCH 32.1 pg (26.0-34.0); MCV 89.2 fL (80.0-100.0); MEAN PLATELET VOLUME 9.3 fL (7.4-10.4); MONOCYTES 6.8 % (2-11); NEUTROPHILS 67.4 % (40-80); PLATELET COUNT 135 10x3/uL (130-400); RBC 4.98 10x6/uL (4.20-6.10); RDW 11.9 % (11.5-14.5)
[2018-09-03 16:14] LABS: APTT 133.6 SECONDS (22.8-39.4)
--- NOTE | 2018-09-03 17:50 | NUR ---
DOPPLER PULSES X3, THER ARE DIFFICULT TO FIND BUT THEY ARE ABSOLUTELY PRESENT, TRUDY GEORGE SPECIALS CAME IN AND WAS WITNESS TO THE DOPLER ALSO.
[2018-09-03 20:50] LABS: BASOPHILS 0.2 % (0-2); EOSINOPHILS 0.8 % (0-7); HEMATOCRIT 44.7 % (42.0-54.0); IMMATURE GRANULOCYTES 0.2 % (0-5); LYMPHOCYTES 22.1 % (15-50); MCH 31.9 pg (26.0-34.0); MCHC 35.8 g/dL (31.0-37.0); MONOCYTES 7.9 % (2-11); NEUTROPHILS 68.8 % (40-80); PLATELET COUNT 119 10x3/uL (130-400); RBC 5.02 10x6/uL (4.20-6.10); RDW 11.9 % (11.5-14.5); WBC 9.3 10x3/uL (4.8-10.8)
[2018-09-03 21:15] LABS: APTT 35.8 SECONDS (22.8-39.4)
[2018-09-04] VITALS (17 sets, daily range): BP systolic 75–165; BP diastolic 48–88
[2018-09-04 04:32] LABS: BASOPHILS 0.1 % (0-2); EOSINOPHILS 0.1 % (0-7); HEMATOCRIT 46.1 % (42.0-54.0); HEMOGLOBIN 16.2 g/dL (13.5-17.5); IMMATURE GRANULOCYTES 0.4 % (0-5); LYMPHOCYTES 4.5 % (15-50); MCH 31.9 pg (26.0-34.0); MCHC 35.1 g/dL (31.0-37.0); MCV 90.7 fL (80.0-100.0); MEAN PLATELET VOLUME 9.4 fL (7.4-10.4); MONOCYTES 8.3 % (2-11); NEUTROPHILS 86.6 % (40-80); RBC 5.08 10x6/uL (4.20-6.10)
[2018-09-04 04:46] LABS: ANION GAP 12.8 mmol/L (8-16); CALCIUM 8.4 mg/dL (8.5-10.1); CARBON DIOXIDE 27.1 mmol/L (21.0-32.0); CREATININE - SERUM 1.5 mg/dL (0.6-1.3); POTASSIUM - SERUM 3.9 mmol/L (3.5-5.1)
[2018-09-04 04:47] LABS: PLATELET COUNT 92 10x3/uL (130-400); WBC 13.3 10x3/uL (4.8-10.8)
[2018-09-04 04:49] LABS: APTT 75.1 SECONDS (22.8-39.4); INR 2.16 (0.85-1.17); PROTIME 23.4 SECONDS (11.6-15.0)
[2018-09-04 05:07] LABS: PLATELET ESTIMATE DECREASED
--- NOTE | 2018-09-04 07:15 | NUR ---
REPORT RECIEVED, SHIFT ASSESSMENT COMPLETE, PT IS ALERT AND ORIENTED, ON 2L NC WITH 975 O2 SAT. VSS, CALL LIGHT IN REACH
[2018-09-04 08:28] LABS: BASOPHILS 0.1 % (0-2); EOSINOPHILS 0 % (0-7); HEMATOCRIT 44.8 % (42.0-54.0); HEMOGLOBIN 15.7 g/dL (13.5-17.5); IMMATURE GRANULOCYTES 0.3 % (0-5); LYMPHOCYTES 6.6 % (15-50); MCH 31.8 pg (26.0-34.0); MCV 90.9 fL (80.0-100.0); MONOCYTES 10.6 % (2-11); NEUTROPHILS 82.4 % (40-80); PLATELET COUNT 88 10x3/uL (130-400); RBC 4.93 10x6/uL (4.20-6.10); WBC 12.2 10x3/uL (4.8-10.8)
[2018-09-04 08:53] LABS: APTT 60.7 SECONDS (22.8-39.4)
--- NOTE | 2018-09-04 09:00 | NUR ---
AT BEDSIDE, UPDATE GIVEN
--- NOTE | 2018-09-04 09:39 | NUR ---
Pt is NPO for procedure today Plans for diet advance after procedure BG [address] following
--- NOTE | 2018-09-04 10:05 | NUR ---
DR. MENA AT BEDSIDE, UPDATE GIVEN
--- NOTE | 2018-09-04 12:52 | NUR ---
PT TO IR AT THIS TIME, AT BEDSIDE,
--- NOTE | 2018-09-04 15:45 | NUR ---
PT BACK FROM IR, SHEATH REMOVED, GROIN DRSG CDI, GROIN TO LOWER LEFT LEG CDI, FAMILY AT BEDSIDE,
[2018-09-04 16:01] LABS: BASOPHILS 0.1 % (0-2); EOSINOPHILS 0.2 % (0-7); HEMATOCRIT 43.8 % (42.0-54.0); HEMOGLOBIN 15.2 g/dL (13.5-17.5); IMMATURE GRANULOCYTES 0.3 % (0-5); LYMPHOCYTES 10.5 % (15-50); MCH 31.7 pg (26.0-34.0); MCHC 34.7 g/dL (31.0-37.0); MCV 91.4 fL (80.0-100.0); MEAN PLATELET VOLUME 9.2 fL (7.4-10.4); MONOCYTES 12.5 % (2-11); NEUTROPHILS 76.4 % (40-80); PLATELET COUNT 80 10x3/uL (130-400); RBC 4.79 10x6/uL (4.20-6.10)
[2018-09-04 16:27] LABS: APTT 79.3 SECONDS (22.8-39.4)
--- NOTE | 2018-09-04 17:01 | NUR ---
PT RESTING AT THIS TIME, NO NEEDS NOTED, WILL CON'T TO MONITOR
--- NOTE | 2018-09-04 21:07 | NUR ---
SANDWHICH GIVEN TO PATIENT, HOB ELEVATED 35 DEGREES. PATIENT DENIES ANY NEEDS AT THIS TIME. CALL LIGHT WITHIN REACH, BED IN LOW POSITION. R GROIN IS SOFT, WITHOUT SIGNS OF BLEEDING NOTED, AND DRESSING CDI.
[2018-09-04 21:33] LABS: BASOPHILS 0.1 % (0-2); EOSINOPHILS 0.1 % (0-7); HEMATOCRIT 39.3 % (42.0-54.0); HEMOGLOBIN 13.7 g/dL (13.5-17.5); IMMATURE GRANULOCYTES 0.2 % (0-5); LYMPHOCYTES 11.7 % (15-50); MCH 31.6 pg (26.0-34.0); MCHC 34.9 g/dL (31.0-37.0); MCV 90.8 fL (80.0-100.0); MEAN PLATELET VOLUME 8.8 fL (7.4-10.4); MONOCYTES 11.4 % (2-11); NEUTROPHILS 76.5 % (40-80); PLATELET COUNT 76 10x3/uL (130-400); RBC 4.33 10x6/uL (4.20-6.10); WBC 8.7 10x3/uL (4.8-10.8)
--- NOTE | 2018-09-04 22:53 | NUR ---
REPORT CALLED TO AMANDA Pearson RN MED SURG. PT ROOM 2239 GIVEN.
--- NOTE | 2018-09-04 23:45 | NUR ---
LAB CALLED WITH CRITICAL HIGH PTT OF 167. ASK LAB TO RE-DRAW LAB DUE TO THE LAB BEING DRAWN FROM SAME SIDE HEPARIN INFUSING. PATIENT BEING TRANSPORTED TO [facility] AT THIS TIME. WILL NOTIFY RN GETTING REPORT OF RE-DRAW.
[2018-09-05] VITALS: BP 88/52
--- NOTE | 2018-09-05 01:17 | NUR ---
resting in bed with no needs no s/s of distress.resprations even and unlabored call lght in reach.
[2018-09-05 03:07] LABS: BASOPHILS 0.1 % (0-2); EOSINOPHILS 0.2 % (0-7); HEMATOCRIT 38.5 % (42.0-54.0); HEMOGLOBIN 13.4 g/dL (13.5-17.5); IMMATURE GRANULOCYTES 0.4 % (0-5); LYMPHOCYTES 12.3 % (15-50); MCH 31.4 pg (26.0-34.0); MCHC 34.8 g/dL (31.0-37.0); MCV 90.2 fL (80.0-100.0); MONOCYTES 10.9 % (2-11); NEUTROPHILS 76.1 % (40-80); PLATELET COUNT 73 10x3/uL (130-400); RBC 4.27 10x6/uL (4.20-6.10); WBC 9.6 10x3/uL (4.8-10.8)
[2018-09-05 03:15] LABS: APTT 41.7 SECONDS (22.8-39.4)
[2018-09-05 03:21] LABS: INR 1.29 (0.85-1.17); PROTIME 15.5 SECONDS (11.6-15.0)
[2018-09-05 03:25] LABS: ALBUMIN 2.6 g/dL (3.4-5.0); ANION GAP 14.4 mmol/L (8-16); BILIRUBIN - TOTAL 0.8 mg/dL (0.2-1.3); CALCIUM 7.8 mg/dL (8.5-10.1); CARBON DIOXIDE 23.6 mmol/L (21.0-32.0); CREATININE - SERUM 1.4 mg/dL (0.6-1.3); PROTEIN - SERUM 5.2 g/dL (6.4-8.2)
[2018-09-05 05:20] VITALS: BP 85/58
--- NOTE | 2018-09-05 09:00 | NUR ---
PT RESTIING BED NO SIGNS OF DISTRESS. IV TO LEFT HAND PATENT NO REDNESS OR TENDERNESS. CAN NOT MOVE LEFT LEG. FAMILY AT BEDSIDE.
[2018-09-05 09:07] VITALS: BP 148/66; BP 97/61
[2018-09-05 10:17] LABS: BASOPHILS 0.1 % (0-2); EOSINOPHILS 0.3 % (0-7); HEMATOCRIT 37.2 % (42.0-54.0); IMMATURE GRANULOCYTES 0.2 % (0-5); LYMPHOCYTES 13.5 % (15-50); MCH 31.3 pg (26.0-34.0); MCHC 34.9 g/dL (31.0-37.0); MEAN PLATELET VOLUME 9.5 fL (7.4-10.4); MONOCYTES 9.8 % (2-11); NEUTROPHILS 76.1 % (40-80); PLATELET COUNT 78 10x3/uL (130-400); RBC 4.15 10x6/uL (4.20-6.10); RDW 11.9 % (11.5-14.5); WBC 8.7 10x3/uL (4.8-10.8)
[2018-09-05 10:18] LABS: MCV 89.7 fL (80.0-100.0)
[2018-09-05 10:22] LABS: APTT 41.5 SECONDS (22.8-39.4)
[2018-09-05] MEDS ORDERED: COUMADIN5 MG PO (11:43)
[2018-09-05] MEDS ORDERED: COUMADIN7.5 MG PO (11:43)
[2018-09-05] MEDS ORDERED: TENORMIN25 MG PO (11:43)
[2018-09-05] MEDS ORDERED: LIPITOR20 MG PO (11:43)
[2018-09-05] MEDS ORDERED: AMBIEN5 MG PO (11:46)
[2018-09-05] MEDS ORDERED: ZOFRAN INJ IV (11:48)
[2018-09-05] MEDS ORDERED: COLACE100 MG PO (11:48)
[2018-09-05] MEDS ORDERED: PROTONIX VL + NS SYR IV (11:48)
--- NOTE | 2018-09-05 12:43 | MORECARE ---
CASE MANAGEMENT DISCHARGE SUMMARY PATIENT: CODY POE UNIT: [id number] ADM DATE: 08/29/18 AGE: 68 : 48 SEX: M ROOM/BED: D.2239 AUTHOR: MEGDOC PHYSICIAN: REFERRING PHYSICIAN: SHAMEKA ORTIZ MD DATE OF SERVICE: 09/05/18 Discharge Plan Patient Name: CODY POE [facility] [facility] 1950 Planned Disposition: Home Anticipated Discharge Date: 09/07/18 Discharge Date: Expected LOS: 9 Initial Reviewer: [id number] Initial Review Date: 09/02/2018 Generated: 09/05/18 1:43 pm Comments DCP- Discharge Planning Updated by [email or web address]: Tika Hayes on 09/05/18 11:[address] PATIENT BEING TRANSFERED TO [facility] VIA EMS. IMM SERVED AND EXPLAINED AT BEDSIDE. CM TO FOLLOW AND ASSIST NEEDED DCP- Discharge Planning Updated by [email or web address]: Re Shepard on 09/02/18 9:[address] Patient Name: CODY POE Admission Status: Urgent Accout number: [id number] Admission Date: 08-29-2018 : 1950 Admission Diagnosis:OTHER DISORDER OF CIRCULATORY SYSTEM Attending: SHAMEKA ORTIZ Current LOS: 4 Anticipated DC Date: 09-07-2018 Planned Disposition: Home Primary Insurance: MEDICARE A & B Discharge Planning Comments: CM MET WITH PATIENT AND SPOUSE (PAT) REGARDING D/C NEEDS AND PLANS. PATIENT STATED HIS WILL DRIVE HIM HOME WHEN DISCHARGED. THERE ARE TWO STEPS TO ENTER HOME AND NO STAIRS INSIDE. PAITENT STATED HE IS INDEPENDENT WITH HIS CARE AND HAS A CPAP, O2, WALKER, CANE, BS COMMODE, SHOWER CHAIR, CRUTCHES, AND PORTABLE O2 AT HOME. PATIENTS PCP IS DR. ORTIZ AND USES [facility]. PATIENT DID NOT WANT HOME HEALTH AT THIS TIME. PATIENT AND HAD QUESTIONS REGARDING HIS SURGERY. CM SPOKE WITH PATIENTS NURSE (KENZIE) AND SHE AND I MET PATIENTS LEAVING IN [place] AND KENZIE SPOKE WITH HER AT THAT TIME AND SHE HAD HER QUESTIONS ANSWERED AND THEN KENZIE WENT INTO PATIENTS ROOM TO SPEAK WITH HIM. CM WILL CONTINUE TO FOLLOW PATIENT WITH D/C NEEDS AND PLANS. PCP [facility] () [phone] Data Entry Assistant: Re Shepard DCPIA - Discharge Planning Initial Assessment Updated by [email or web address]: Re Shepard on 09/02/18 10:02 am * Is the patient Alert and Oriented? Yes * How many steps to enter\exit or inside your home? * PCP DR. ORTIZ * Pharmacy [facility] * Preadmission Environment Home with Family * ADLs Independent * Equipment Bedside Commode Cane CPAP Crutch Oxygen Shower Chair Walker * List name and contact numbers for known caregivers / representatives who currently or will assist patient after discharge: STEVAN MAYEN (SPOUSE) [phone] * Verbal permission to speak to the caregivers and representatives has been obtained from the patient. Yes * Community resources currently utilized None * Additional services required to return to the preadmission environment? Yes * Can the patient safely return to the preadmission environment? Yes * Has this patient been hospitalized within the prior 30 days at any hospital? No Coverage Notice Reviewer: [id number] Dorene Hayes Notice Issued Date-Time: 09/05/2018 12:00 Notice Type: IM Discharge Notice Notice Delivered To: Patient Relationship to Patient: Reception Interviewer Name: Delivery Method: HAND - Hand Delivered Eleni Days: Prior Verbal Notification: Recipient Understood Notice: Yes Recipient Signature: Yes Med Rec Note Co-signed by Attending: Coverage Notice Comment: Last DP export: 09/02/18 9:08 am Patient Name: CODY POE Page 62100 at 1243 All edits/amendments must be made on the electronic document DICTATION DATE: 09/05/18 1243 SHIP MATE: PRECIOUS 09/05/18 1243 RPT#: [id number] DC DATE: STATUS: ADM IN [facility] [address] [place] [address] END OF REPORT
[2018-09-05 13:49] VITALS: BP 111/69
--- NOTE | 2018-09-05 15:38 | NUR ---
DISCHARGE INSTRUCTIONS GIVEN. NO SIGNS OF DISTRESS. IV LEFT IN LEFT HAND PER DR ORDER. LEFT WITH EMS TO GO TO [facility]. DENIES ANY NEED AT THIS TIME.
--- NOTE | 2018-09-07 09:25 | MORECARE ---
CASE MANAGEMENT DISCHARGE SUMMARY PATIENT: CODY POE UNIT: [id number] ADM DATE: 08/29/18 AGE: 68 : 48 SEX: M ROOM/BED: D.2239 AUTHOR: ANA MARÍA WEAVER PHYSICIAN: REFERRING PHYSICIAN: SHAMEKA ORTIZ MD DATE OF SERVICE: 09/07/18 Discharge Plan Patient Name: CODY POE Facility: [facility]:[place] : 1950 Planned Disposition: Home Anticipated Discharge Date: 09/07/18 Discharge Date: 09/05/2018 Expected LOS: 9 Initial Reviewer: [email or web address] Initial Review Date: 09/02/2018 Generated: 09/07/18 10:24 am Comments DCP- Discharge Planning Updated by [email or web address]: Tika Hayes on 09/05/18 11:[address] PATIENT BEING TRANSFERED TO [facility] VIA EMS. IMM SERVED AND EXPLAINED AT BEDSIDE. CM TO FOLLOW AND ASSIST NEEDED DCP- Discharge Planning Updated by [email or web address]: Re Shepard on 09/02/18 9:[address] Patient Name: CODY POE Admission Status: Urgent Accout number: [id number] Admission Date: 08-29-2018 : 1950 Admission Diagnosis:OTHER DISORDER OF CIRCULATORY SYSTEM Attending: SHAMEKA ORTIZ Current LOS: 4 Anticipated DC Date: 09-07-2018 Planned Disposition: Home Primary Insurance: MEDICARE A & B Discharge Planning Comments: CM MET WITH PATIENT AND SPOUSE (PAT) REGARDING D/C NEEDS AND PLANS. PATIENT STATED HIS WILL DRIVE HIM HOME WHEN DISCHARGED. THERE ARE TWO STEPS TO ENTER HOME AND NO STAIRS INSIDE. PAITENT STATED HE IS INDEPENDENT WITH HIS CARE AND HAS A CPAP, O2, WALKER, CANE, BS COMMODE, SHOWER CHAIR, CRUTCHES, AND PORTABLE O2 AT HOME. PATIENTS PCP IS DR. ORTIZ AND USES [facility]. PATIENT DID NOT WANT HOME HEALTH AT THIS TIME. PATIENT AND HAD QUESTIONS REGARDING HIS SURGERY. CM SPOKE WITH PATIENTS NURSE (KENZIE) AND SHE AND I MET PATIENTS LEAVING IN [place] AND KENZIE SPOKE WITH HER AT THAT TIME AND SHE HAD HER QUESTIONS ANSWERED AND THEN KENZIE WENT INTO PATIENTS ROOM TO SPEAK WITH HIM. CM WILL CONTINUE TO FOLLOW PATIENT WITH D/C NEEDS AND PLANS. PCP [facility] () [phone] Rug Dyer: Re Shepard DCPIA - Discharge Planning Initial Assessment Updated by [id number]: Re Shepard on 09/02/18 10:02 am * Is the patient Alert and Oriented? Yes * How many steps to enter\exit or inside your home? * PCP DR. ORTIZ * Pharmacy [facility] * Preadmission Environment Home with Family * ADLs Independent * Equipment Bedside Commode Cane CPAP Crutch Oxygen Shower Chair Walker * List name and contact numbers for known caregivers / representatives who currently or will assist patient after discharge: STEVAN MAYEN (SPOUSE) [phone] * Verbal permission to speak to the caregivers and representatives has been obtained from the patient. Yes * Community resources currently utilized None * Additional services required to return to the preadmission environment? Yes * Can the patient safely return to the preadmission environment? Yes * Has this patient been hospitalized within the prior 30 days at any hospital? No Coverage Notice Reviewer: [email or web address] Dorene Hayes Notice Issued Date-Time: 09/05/2018 12:00 Notice Type: IM Discharge Notice Notice Delivered To: Patient Relationship to Patient: Radar Engineering Teacher Name: Delivery Method: HAND - Hand Delivered Eleni Days: Prior Verbal Notification: Recipient Understood Notice: Yes Recipient Signature: Yes Med Rec Note Co-signed by Attending: Coverage Notice Comment: Last DP export: 09/05/18 11:43 am Patient Name: CODY POE Page 24057 at 0925 All edits/amendments must be made on the electronic document DICTATION DATE: 09/07/18923 SUPERVISOR FIREARMS: PRECIOUS 09/07/18923 RPT#: [id number] DC DATE:09/05/18 STATUS: DIS IN [facility] [address] [place] [address] END OF REPORT
== END 2018-09-05 15:49 | disposition short-term general hospital (02) | DRG 253 ==
LOC: D.MS 17:04 → D.ICU 09-03 15:04 → D.MS 09-04 23:46
PROVIDERS: Family Medicine; General Practice; Internal Medicine Nephrology; Radiology Diagnostic Radiology; ADMIT Emergency Medicine
PROC: 047Q3ZZ Dilation of Left Anterior Tibial Artery, Percutaneous Approach (ICD-10-PCS; 2018-09-03)
PROC: 3E05317 Introduction of Other Thrombolytic into Peripheral Artery, Percutaneous Approach (ICD-10-PCS; principal; 2018-09-03 12:30)
DX: I70.212 Atherosclerosis of native arteries of extremities with intermittent claudication, left leg (principal); I70.92 Chronic total occlusion of artery of the extremities; I25.10 Atherosclerotic heart disease of native coronary artery without angina pectoris; G62.9 Polyneuropathy, unspecified; I11.0 Hypertensive heart disease with heart failure; I50.9 Heart failure, unspecified; I77.1 Stricture of artery